=== PATIENT | female | born 1990 | race Caucasian/White ===

== ENCOUNTER 2016-11-29 07:45 | Emergency (ER) | payer OTHER ==
[~2016-11-29] VITALS: Ht 160 cm; Wt 58.6 kg
[~2016-11-29 07:45] MED LIST: AZITHROMYC200 MG/5 M PO; PRENATAL TABLE1 EAC3 PO
[2016-11-29] MEDS ORDERED: PREDNISONE20 MG PO (07:55)
[2016-11-29] MEDS ORDERED: PEPCID20 MG PO (07:55)
[2016-11-29 08:15] VITALS: BP 124/67
== END 2016-11-29 08:15 | disposition home or self-care (01) ==
LOC: EME 07:45
DX: L50.9 Urticaria, unspecified (principal)
CPT/HCPCS: 99281; 99284; J7512

== ENCOUNTER 2016-11-29 18:02 | Emergency (ER) | payer OTHER ==
[~2016-11-29] VITALS: Ht 160 cm; Wt 56.9 kg
[~2016-11-29 18:02] MED LIST changes: +PEPCID20 MG PO; +PREDNISONE20 MG PO
[2016-11-29 18:40] LABS: HEMATOCRIT 41.8 % (36.0-46.0); MCH 28.7 PG (29.0-34.0); MCHC 34.4 G/DL (30.0-36.0); MCV 83.3 FL (83-99); MEAN PLAT.VOLUME 9.8 uM^3 (9.5-12.4); PLATELET COUNT 301 K/uL (156-360); RBC DIS.WIDTH-CV 12.7 % (11.8-14.6); RED BLOOD COUNT 5.02 M/uL (3.80-5.20); WHITE BLOOD COUNT 9.6 K/uL (4.1-10.2)
[2016-11-29 18:49] LABS: CHLORIDE 107 mEq/L (99-109); POTASSIUM 3.4 mEq/L (3.7-5.4); SODIUM 138 mEq/L (136-147)
[2016-11-29 18:50] LABS: GLUCOSE 148 mg/dL (70-99)
[2016-11-29 18:52] LABS: ANION GAP 9 MEQ/L (2-14)
[2016-11-29 18:54] LABS: GFR ESTIMATE (CALCULATED) > 59 mL/min/
[2016-11-29 18:55] LABS: UREA NITROGEN (BUN) 13 mg/dL (9-23)
[2016-11-29 19:03] LABS: QUANTITATIVE HCG < 4.0 MIU/ML
[2016-11-29 20:14] VITALS: BP 124/89
[2016-11-30 09:30] LABS: LYME DISEASE SEROLOGY SCREEN NEGATIVE (NEGATIVE)
== END 2016-11-29 20:16 | disposition home or self-care (01) ==
LOC: EME 18:02
PROVIDERS: Physician Assistant
DX: R20.8 Other disturbances of skin sensation (principal); E06.3 Autoimmune thyroiditis
CPT/HCPCS: 80048; 84443; 84702; 85027; 86618; 99281; 99284